=== PATIENT | male | born 1930 | race Caucasian/White ===

== ENCOUNTER 2017-07-28 11:53 | Inpatient (IN) | payer MEDICARE, OTHER ==
[2017-07-28 12:54] LABS: ADD MAN DIFF? NO
[2017-07-28 12:57] LABS: ABNORMAL IP MESSAGE 1; BASOPHILS % 0.3 % (0.0-2.0); EOSINOPHILS # 0.1 10^3/ul (0.0-0.5); HEMATOCRIT 36.1 % (42.0-52.0); HEMOGLOBIN 11.8 g/dl (14.0-18.0); LYMPHOCYTES # 0.6 10^3/ul (0.8-2.9); LYMPHOCYTES % 8.6 % (15.0-51.0); MEAN CORPUSCULAR HEMOGLOBIN 29.9 pg (29.0-33.0); MEAN CORPUSCULAR HGB CONC 32.7 g/dl (32.0-37.0); MEAN CORPUSCULAR VOLUME 91.6 fl (82.0-101.0); MEAN PLATELET VOLUME 9.2 fl (7.4-10.4); MONOCYTE # 0.7 10^3/ul (0.3-0.9); MONOCYTES % 9.6 % (0.0-11.0); NEUTROPHIL # 5.4 10^3/ul (1.6-7.5); NEUTROPHILS % 80.1 % (39.0-77.0); PLATELET COUNT 239 10^3/UL (140-415); POSITIVE DIFF @See below; RED BLOOD COUNT 3.94 10^6/ul (4.70-6.10); RED CELL DISTRIBUTION WIDTH 13.9 % (11.5-14.5)
[2017-07-28 12:57] LABS: WHITE BLOOD COUNT 6.8 10^3/ul (4.8-10.8)
[2017-07-28] MEDS: DILTIAZEM 25 MG INJ IV (13:00)
[2017-07-28] MEDS: SODIUM CHLORIDE 0.9% 1L BAG IV* (13:00)
[2017-07-28] MEDS: CEFTRIAXONE 1 GM/50 ML (PMX) 50 ML IVPB (13:07)
[2017-07-28 13:19] LABS: ADD UMIC YES; UR ASCORBIC ACID NEGATIVE (NEGATIVE); UR BACTERIA FEW /HPF (NONE SEEN); UR BILIRUBIN (Dip) NEGATIVE (NEGATIVE); UR BLOOD (Dip) 1+ mg/dL (NEGATIVE); UR CLARITY CLEAR (CLEAR); UR COLOR YELLOW (YELLOW); UR GLUCOSE (Dip) 1+ mg/dL (NEGATIVE); UR KETONES (Dip) NEGATIVE (NEGATIVE); UR LEUKOCYTE ESTERASE (Dip) NEGATIVE Leu/ul (NEGATIVE); UR MUCUS FEW /HPF (NONE SEEN); UR NITRITE (Dip) NEGATIVE (NEGATIVE); UR RBC 2 /HPF (0-5); UR SPECIFIC GRAVITY (Dip) 1.016 (1.003-1.030); UR TOTAL PROTEIN (Dip) NEGATIVE (NEGATIVE); UR UROBILINOGEN (Dip) 1+ mg/dL (NEGATIVE); UR WBC 5 /HPF (0-5)
[2017-07-28 13:23] LABS: INR 1.18; PROTIME 15.2 Sec (11.9-14.9); PT RATIO 1.2
[2017-07-28 13:24] LABS: PARTIAL THROMBOPLASTIN TIME 38.6 Sec (25.0-35.0)
[2017-07-28] MEDS: DILTIAZEM-D5W 125MG/125ML DRIP 125 ML IV ×2 (13:35→17:00)
[2017-07-28] MEDS: AZITHROMYCIN 500MG/NS (PMX) 250 ML IV (13:58)
[2017-07-28 13:59] LABS: LACTIC ACID 1.9 mmol/L (0.5-2.0)
[2017-07-28 14:00] LABS: ALANINE AMINOTRANSFERASE 37 IU/L (13-69); ALBUMIN 3.2 g/dl (3.3-4.9); ALKALINE PHOSPHATASE 302 IU/L (42-121); ANION GAP 15 (8-16); ASPARTATE AMINO TRANSFERASE 28 IU/L (15-46); BILIRUBIN,INDIRECT 0.6 mg/dl (0-1.1); BILIRUBIN,TOTAL 0.6 mg/dl (0.2-1.3); BLOOD UREA NITROGEN 25 mg/dl (7-20); CALCIUM 8.8 mg/dl (8.4-10.2); CARBON DIOXIDE 26 mmol/L (21-31); CHLORIDE 103 mmol/L (97-110); CREATININE 0.85 mg/dl (0.61-1.24); GLUCOSE 266 mg/dl (70-220); SODIUM 139 mmol/L (135-144); TOTAL PROTEIN 6.4 g/dl (6.1-8.1)
[2017-07-28 14:12] LABS: B-TYPE NATRIURETIC PEPTIDE 2980 PG/ML (0-450)
[2017-07-28 14:16] LABS: FREE THYROXINE INDEX (Calc) 3.51 ug/ml (0.65-3.89); T3 UPTAKE 43.3 % (23.5-40.5); T4 (THYROXINE) 8.1 ug/dl (5.5-11.0)
[2017-07-28 14:35] LABS: TROPONIN-I < 0.012 ng/ml (0.00-0.12)
[2017-07-28] MEDS: IOHEXOL 100 ML (14:58)
[2017-07-28] MEDS: SOD CHLORIDE 0.9% 100 ML (14:58)
[2017-07-28 15:35] LABS: LACTIC ACID 1.5 mmol/L (0.5-2.0)
[2017-07-28] MEDS ORDERED: ACETAMINOPHEN 325 MG TAB PO (16:00)
[2017-07-28] MEDS ORDERED: ONDANSETRON 4 MG INJ IV ×2 (16:00→16:30)
[2017-07-28] MEDS ORDERED: NACL 0.9% 3 ML SYG IV (16:30)
[2017-07-28 16:55] LABS: HEMOGLOBIN A1C 6.4 % (0-5.9)
[2017-07-28 17:15] LABS: FREE T4 (FREE THYROXINE) 2.27 ng/dl (0.85-1.93)
[2017-07-28 17:28] LABS: CARCINOEMBRYONIC ANTIGEN 2.4 ng/ml (0.0-5.0)
[2017-07-28] MEDS ORDERED: GLUCOSE GEL 15 GRAM TUBE BUCCAL (17:30)
[2017-07-28] MEDS ORDERED: GLUCOSE GEL 15 GRAM TUBE PO ×2 (17:30)
[2017-07-28] MEDS ORDERED: GLUCAGON 1 MG INJ IM (17:30)
[2017-07-28] MEDS ORDERED: DEXTROSE 50% 50 ML SYRINGE IV ×2 (17:30)
[2017-07-28] MEDS: INSULIN ASPART [NOVOLOG] 3 ML PEN SC ×3 (18:00→20:46)
[2017-07-28] MEDS: FUROSEMIDE 40 MG INJ IV (18:05)
[2017-07-28 19:30] LABS: CREATINE KINASE 101 IU/L (23-200)
[2017-07-28 19:31] LABS: LACTIC ACID 1.8 mmol/L (0.5-2.0)
[2017-07-28 19:44] LABS: CK-MB 2.05 ng/ml (0.0-2.4); TROPONIN-I < 0.012 ng/ml (0.00-0.12)
[2017-07-28] MEDS: LEVALBUTEROL (NEB) 0.63 MG/3 ML AMP HHN (19:44)
[2017-07-28] MEDS: DOCUSATE SODIUM 100 MG CAP PO (20:43)
[2017-07-28] MEDS: HYDROCODONE/APAP (5/325) TAB PO (20:43)
[2017-07-28] MEDS: TAMSULOSIN (SR) 0.4 MG CAP PO (20:43)
[2017-07-28] MEDS: INSULIN GLARGINE [LANtus] 3 ML PEN SC (20:45)
[2017-07-29] MEDS: LEVALBUTEROL (NEB) 0.63 MG/3 ML AMP HHN ×4 (01:13→19:49)
[2017-07-29 01:27] LABS: CREATINE KINASE 94 IU/L (23-200)
[2017-07-29 01:41] LABS: CK-MB 1.87 ng/ml (0.0-2.4); TROPONIN-I < 0.012 ng/ml (0.00-0.12)
[2017-07-29] MEDS: ACCU-CHEK XX ×2 (02:00→21:44)
[2017-07-29] MEDS: FUROSEMIDE 40 MG INJ IV ×2 (05:46→18:43)
[2017-07-29 06:52] LABS: ADD MAN DIFF? NO
[2017-07-29 07:15] LABS: BASOPHILS % 0.3 % (0.0-2.0); EOSINOPHILS # 0.1 10^3/ul (0.0-0.5); EOSINOPHILS % 1.4 % (0.0-7.0); HEMATOCRIT 34.6 % (42.0-52.0); LYMPHOCYTES # 0.6 10^3/ul (0.8-2.9); LYMPHOCYTES % 9.4 % (15.0-51.0); MEAN CORPUSCULAR HEMOGLOBIN 29.2 pg (29.0-33.0); MEAN CORPUSCULAR HGB CONC 31.8 g/dl (32.0-37.0); MEAN CORPUSCULAR VOLUME 91.8 fl (82.0-101.0); MEAN PLATELET VOLUME 9.2 fl (7.4-10.4); MONOCYTE # 0.7 10^3/ul (0.3-0.9); MONOCYTES % 11.5 % (0.0-11.0); NEUTROPHIL # 4.9 10^3/ul (1.6-7.5); NEUTROPHILS % 76.9 % (39.0-77.0); PLATELET COUNT 255 10^3/UL (140-415); RED BLOOD COUNT 3.77 10^6/ul (4.70-6.10); RED CELL DISTRIBUTION WIDTH 14.1 % (11.5-14.5)
[2017-07-29 07:15] LABS: WHITE BLOOD COUNT 6.4 10^3/ul (4.8-10.8)
[2017-07-29 07:38] LABS: ALANINE AMINOTRANSFERASE 41 IU/L (13-69); ALBUMIN 3.3 g/dl (3.3-4.9); ALKALINE PHOSPHATASE 284 IU/L (42-121); ANION GAP 15 (8-16); ASPARTATE AMINO TRANSFERASE 30 IU/L (15-46); BILIRUBIN,INDIRECT 0.4 mg/dl (0-1.1); BILIRUBIN,TOTAL 0.4 mg/dl (0.2-1.3); BLOOD UREA NITROGEN 20 mg/dl (7-20); CALCIUM 8.3 mg/dl (8.4-10.2); CARBON DIOXIDE 29 mmol/L (21-31); CHLORIDE 104 mmol/L (97-110); CREATININE 0.86 mg/dl (0.61-1.24); GLUCOSE 117 mg/dl (70-220); SODIUM 144 mmol/L (135-144); TOTAL PROTEIN 6.3 g/dl (6.1-8.1)
[2017-07-29 07:40] LABS: PHOSPHORUS 4.6 mg/dl (2.5-4.9)
[2017-07-29 07:40] LABS: CHOL/HDL RATIO 3.4 RATIO; CHOLESTEROL 108 mg/dl (100-200); HDL CHOLESTEROL 31 mg/dl (31-75); LDL CHOLESTEROL,CALCULATED 65 mg/dl; MAGNESIUM 1.8 mg/dl (1.7-2.5); TRIGLYCERIDES 61 mg/dl (0-149)
[2017-07-29] MEDS: INSULIN ASPART [NOVOLOG] 3 ML PEN SC ×7 (07:55→21:00)
[2017-07-29] MEDS: DOCUSATE SODIUM 100 MG CAP PO ×2 (08:07→21:26)
[2017-07-29] MEDS: METOPROLOL (XL) 25 MG TAB PO (08:09)
[2017-07-29] MEDS: ENALAPRIL 10 MG TAB PO (08:10)
[2017-07-29] MEDS: ENOXAPARIN 40 MG/0.4 ML SYG SC (08:13)
[2017-07-29] MEDS: CHOLECALCIFEROL 1,000 UNIT TAB PO (08:20)
[2017-07-29 08:59] LABS: AADO2 Arterial 104.7 mmHg (7.0-24.0); Allen Test ACCEPTAB; Arterial Base Excess 0.6 mmol/L (-3.0-3); Arterial Blood Gas Oxygen Sat 97.1 mmHG (95.0-100.0); Arterial COHb 0.8 % (0.0-3.0); Arterial HCO3 23.6 mmol/L (22.0-26.0); Arterial MetHb 0.3 % (0.0-1.5); Arterial Total Hemglobin 12.3 g/dl (12.0-18.0); Arterial pCO2 32.6 mmhg (35-45); MODE NASAL CANNULA; Site Right Radial
[2017-07-29] MEDS: DIGOXIN 0.25 MG TAB PO (12:18)
[2017-07-29] MEDS: CEFTRIAXONE 1 GM/50 ML (PMX) 50 ML IVPB (12:19)
[2017-07-29] MEDS: AZITHROMYCIN 500MG/NS (PMX) 250 ML IVPB (13:21)
[2017-07-29] MEDS: HYDROCODONE/APAP (5/325) TAB PO (16:24)
[2017-07-29] MEDS: LIDOCAINE 1% (MPF) 5 ML VIAL (18:27)
[2017-07-29] MEDS: BISACODYL (EC) 5 MG TAB PO (18:44)
[2017-07-29 19:11] LABS: FLD MN% 63.7 %; FLD PMN% 36.3 %; FLD RBC 4000 /uL; FLD WBC 794 /cmm
[2017-07-29 19:30] LABS: FLUID GLUCOSE 96 mg/dl; FLUID LD 1191 U/L; FLUID TYPE THORACENTESIS FLUID
[2017-07-29 19:33] LABS: FLD CLARITY CLOUDY; FLD COLOR ORANGE
[2017-07-29 19:33] LABS: FLD TYPE PLEURAL
[2017-07-29] MEDS: TAMSULOSIN (SR) 0.4 MG CAP PO (21:26)
[2017-07-29] MEDS: ACETAMINOPHEN 325 MG TAB PO (21:27)
[2017-07-29] MEDS: INSULIN GLARGINE [LANtus] 3 ML PEN SC (21:42)
[2017-07-30] MEDS: HYDROCODONE/APAP (5/325) TAB PO ×2 (01:31→08:28)
[2017-07-30] MEDS: LEVALBUTEROL (NEB) 0.63 MG/3 ML AMP HHN ×4 (01:58→19:12)
[2017-07-30] MEDS: BISACODYL (EC) 5 MG TAB PO ×2 (01:58→09:34)
[2017-07-30] MEDS: FUROSEMIDE 40 MG INJ IV ×2 (06:39→17:28)
[2017-07-30 07:12] LABS: ADD MAN DIFF? NO; BASOPHILS % 0.3 % (0.0-2.0); EOSINOPHILS # 0.1 10^3/ul (0.0-0.5); EOSINOPHILS % 1.5 % (0.0-7.0); HEMATOCRIT 35.6 % (42.0-52.0); HEMOGLOBIN 11.6 g/dl (14.0-18.0); LYMPHOCYTES # 0.8 10^3/ul (0.8-2.9); LYMPHOCYTES % 11.2 % (15.0-51.0); MEAN CORPUSCULAR HEMOGLOBIN 29.4 pg (29.0-33.0); MEAN CORPUSCULAR HGB CONC 32.6 g/dl (32.0-37.0); MEAN CORPUSCULAR VOLUME 90.4 fl (82.0-101.0); MEAN PLATELET VOLUME 9.5 fl (7.4-10.4); MONOCYTE # 0.9 10^3/ul (0.3-0.9); MONOCYTES % 11.6 % (0.0-11.0); NEUTROPHIL # 5.6 10^3/ul (1.6-7.5); PLATELET COUNT 258 10^3/UL (140-415); RED BLOOD COUNT 3.94 10^6/ul (4.70-6.10); RED CELL DISTRIBUTION WIDTH 14.1 % (11.5-14.5)
[2017-07-30 07:12] LABS: WHITE BLOOD COUNT 7.5 10^3/ul (4.8-10.8)
[2017-07-30 07:35] LABS: ANION GAP 17 (8-16); BLOOD UREA NITROGEN 25 mg/dl (7-20); CALCIUM 8.6 mg/dl (8.4-10.2); CARBON DIOXIDE 30 mmol/L (21-31); CHLORIDE 100 mmol/L (97-110); CREATININE 0.89 mg/dl (0.61-1.24); GLUCOSE 137 mg/dl (70-220); POTASSIUM 4.1 mmol/L (3.5-5.1); SODIUM 143 mmol/L (135-144)
[2017-07-30 07:40] LABS: PHOSPHORUS 4.8 mg/dl (2.5-4.9)
[2017-07-30 07:40] LABS: MAGNESIUM 1.6 mg/dl (1.7-2.5)
[2017-07-30] MEDS: INSULIN ASPART [NOVOLOG] 3 ML PEN SC ×7 (07:55→21:00)
[2017-07-30] MEDS: ENALAPRIL 10 MG TAB PO (08:17)
[2017-07-30] MEDS: CHOLECALCIFEROL 1,000 UNIT TAB PO (08:17)
[2017-07-30] MEDS: METOPROLOL (XL) 25 MG TAB PO (08:17)
[2017-07-30] MEDS: DOCUSATE SODIUM 100 MG CAP PO ×2 (08:18→21:13)
[2017-07-30] MEDS: ENOXAPARIN 40 MG/0.4 ML SYG SC (08:27)
[2017-07-30] MEDS: MAGNESIUM SULFATE 2 GM/50 ML 50 ML IVPB (09:34)
[2017-07-30] MEDS: POLYETHYLENE GLYCOL 17 GM PACKET PO ×2 (09:34→21:13)
[2017-07-30] MEDS: DIGOXIN 0.25 MG TAB PO (12:35)
[2017-07-30] MEDS ORDERED: NA PHOSPHATE/BIPHOS 133 ML ENEMA PR (15:30)
[2017-07-30] MEDS: TAMSULOSIN (SR) 0.4 MG CAP PO (21:13)
[2017-07-30] MEDS: METOPROLOL 25 MG TAB PO (21:14)
[2017-07-30] MEDS: INSULIN GLARGINE [LANtus] 3 ML PEN SC (21:23)
[2017-07-30] MEDS: ACCU-CHEK XX (21:50)
[2017-07-31] MEDS: LEVALBUTEROL (NEB) 0.63 MG/3 ML AMP HHN ×4 (02:00→21:24)
[2017-07-31 06:38] LABS: ADD MAN DIFF? NO
[2017-07-31 06:44] LABS: WHITE BLOOD COUNT 8.6 10^3/ul (4.8-10.8)
[2017-07-31 06:44] LABS: BASOPHILS % 0.4 % (0.0-2.0); EOSINOPHILS # 0.1 10^3/ul (0.0-0.5); EOSINOPHILS % 1.1 % (0.0-7.0); HEMATOCRIT 38.7 % (42.0-52.0); HEMOGLOBIN 12.3 g/dl (14.0-18.0); LYMPHOCYTES # 0.9 10^3/ul (0.8-2.9); LYMPHOCYTES % 10.6 % (15.0-51.0); MEAN CORPUSCULAR HEMOGLOBIN 29.1 pg (29.0-33.0); MEAN CORPUSCULAR HGB CONC 31.8 g/dl (32.0-37.0); MEAN CORPUSCULAR VOLUME 91.5 fl (82.0-101.0); MEAN PLATELET VOLUME 9.1 fl (7.4-10.4); MONOCYTE # 1.2 10^3/ul (0.3-0.9); MONOCYTES % 13.6 % (0.0-11.0); NEUTROPHIL # 6.3 10^3/ul (1.6-7.5); NEUTROPHILS % 73.8 % (39.0-77.0); PLATELET COUNT 269 10^3/UL (140-415); RED BLOOD COUNT 4.23 10^6/ul (4.70-6.10); RED CELL DISTRIBUTION WIDTH 13.8 % (11.5-14.5)
[2017-07-31] MEDS: FUROSEMIDE 40 MG INJ IV (07:01)
[2017-07-31 07:18] LABS: ANION GAP 15 (8-16); BLOOD UREA NITROGEN 31 mg/dl (7-20); CALCIUM 8.4 mg/dl (8.4-10.2); CARBON DIOXIDE 31 mmol/L (21-31); CHLORIDE 97 mmol/L (97-110); CREATININE 1.02 mg/dl (0.61-1.24); GLUCOSE 112 mg/dl (70-220); POTASSIUM 3.7 mmol/L (3.5-5.1); SODIUM 139 mmol/L (135-144)
[2017-07-31 07:45] LABS: PHOSPHORUS 4.5 mg/dl (2.5-4.9)
[2017-07-31 07:45] LABS: MAGNESIUM 1.6 mg/dl (1.7-2.5)
[2017-07-31] MEDS: INSULIN ASPART [NOVOLOG] 3 ML PEN SC ×7 (07:55→20:24)
[2017-07-31] MEDS: DOCUSATE SODIUM 100 MG CAP PO ×2 (08:13→20:23)
[2017-07-31] MEDS: POLYETHYLENE GLYCOL 17 GM PACKET PO ×2 (08:15→20:24)
[2017-07-31] MEDS: METOPROLOL 25 MG TAB PO ×2 (08:15→20:23)
[2017-07-31] MEDS: CHOLECALCIFEROL 1,000 UNIT TAB PO (08:16)
[2017-07-31] MEDS: ENALAPRIL 10 MG TAB PO (08:17)
[2017-07-31] MEDS: ENOXAPARIN 40 MG/0.4 ML SYG SC (08:24)
[2017-07-31] MEDS: HYDROCODONE/APAP (5/325) TAB PO (12:15)
[2017-07-31] MEDS: DIGOXIN 0.25 MG TAB PO (13:00)
[2017-07-31] MEDS: ALBUMIN HUMAN 5% 250 ML IV (14:30)
[2017-07-31] MEDS: SOD CHLORIDE 0.9% 500 ML IV (14:30)
[2017-07-31] MEDS: POTASSIUM CHLORIDE (SR) 20 MEQ TAB PO (15:38)
[2017-07-31] MEDS: MAGNESIUM SULFATE 2 GM/50 ML 50 ML IVPB (16:40)
[2017-07-31] MEDS: TAMSULOSIN (SR) 0.4 MG CAP PO (20:23)
[2017-07-31] MEDS: INSULIN GLARGINE [LANtus] 3 ML PEN SC (20:26)
[2017-08-01] MEDS: BISACODYL (EC) 5 MG TAB PO (01:49)
[2017-08-01] MEDS: HYDROCODONE/APAP (5/325) TAB PO ×3 (01:49→16:53)
[2017-08-01] MEDS: ACCU-CHEK XX (02:19)
[2017-08-01] MEDS: LEVALBUTEROL (NEB) 0.63 MG/3 ML AMP HHN ×4 (03:32→20:28)
[2017-08-01 07:17] LABS: ADD MAN DIFF? NO
[2017-08-01 07:23] LABS: BASOPHILS % 0.4 % (0.0-2.0); EOSINOPHILS # 0.1 10^3/ul (0.0-0.5); EOSINOPHILS % 1.6 % (0.0-7.0); HEMATOCRIT 36.9 % (42.0-52.0); HEMOGLOBIN 11.8 g/dl (14.0-18.0); LYMPHOCYTES % 13.4 % (15.0-51.0); MEAN CORPUSCULAR HEMOGLOBIN 29.2 pg (29.0-33.0); MEAN CORPUSCULAR VOLUME 91.3 fl (82.0-101.0); MEAN PLATELET VOLUME 9.1 fl (7.4-10.4); MONOCYTES % 13.7 % (0.0-11.0); NEUTROPHIL # 5.1 10^3/ul (1.6-7.5); NEUTROPHILS % 70.5 % (39.0-77.0); PLATELET COUNT 263 10^3/UL (140-415); RED BLOOD COUNT 4.04 10^6/ul (4.70-6.10); RED CELL DISTRIBUTION WIDTH 13.6 % (11.5-14.5)
[2017-08-01 07:23] LABS: WHITE BLOOD COUNT 7.3 10^3/ul (4.8-10.8)
[2017-08-01 07:42] LABS: ANION GAP 13 (8-16); BLOOD UREA NITROGEN 37 mg/dl (7-20); CALCIUM 8.1 mg/dl (8.4-10.2); CARBON DIOXIDE 32 mmol/L (21-31); CHLORIDE 96 mmol/L (97-110); CREATININE 0.99 mg/dl (0.61-1.24); GLUCOSE 118 mg/dl (70-220); POTASSIUM 4.6 mmol/L (3.5-5.1); SODIUM 136 mmol/L (135-144)
[2017-08-01 07:50] LABS: MAGNESIUM 2.3 mg/dl (1.7-2.5)
[2017-08-01] MEDS: INSULIN ASPART [NOVOLOG] 3 ML PEN SC ×7 (07:55→20:19)
[2017-08-01] MEDS: CHOLECALCIFEROL 1,000 UNIT TAB PO (08:23)
[2017-08-01] MEDS: DOCUSATE SODIUM 100 MG CAP PO ×2 (08:24→20:12)
[2017-08-01] MEDS: FUROSEMIDE 40 MG INJ IV (08:24)
[2017-08-01] MEDS: LISINOPRIL 5 MG TAB PO (08:24)
[2017-08-01] MEDS: POLYETHYLENE GLYCOL 17 GM PACKET PO ×2 (08:25→20:12)
[2017-08-01] MEDS: METOPROLOL 25 MG TAB PO ×2 (08:25→20:25)
[2017-08-01] MEDS: ENOXAPARIN 40 MG/0.4 ML SYG SC (08:27)
[2017-08-01] MEDS ORDERED: BISACODYL 10 MG SUPP PR (13:00)
[2017-08-01] MEDS: DIGOXIN 0.25 MG TAB PO (13:44)
[2017-08-01] MEDS: TAMSULOSIN (SR) 0.4 MG CAP PO (20:12)
[2017-08-01] MEDS: INSULIN GLARGINE [LANtus] 3 ML PEN SC (20:15)
[2017-08-01] MEDS: ZOLPIDEM 5 MG TAB PO (23:54)
[2017-08-02] MEDS: LEVALBUTEROL (NEB) 0.63 MG/3 ML AMP HHN ×4 (02:03→19:31)
[2017-08-02] MEDS: ACCU-CHEK XX (02:07)
[2017-08-02] MEDS: INSULIN ASPART [NOVOLOG] 3 ML PEN SC ×7 (07:55→20:26)
[2017-08-02] MEDS: FUROSEMIDE 40 MG INJ IV (08:10)
[2017-08-02] MEDS: METOPROLOL 25 MG TAB PO ×2 (08:11→20:28)
[2017-08-02] MEDS: LISINOPRIL 5 MG TAB PO ×2 (08:11→20:27)
[2017-08-02 08:12] LABS: ADD MAN DIFF? NO
[2017-08-02 08:14] LABS: BASOPHILS % 0.3 % (0.0-2.0); EOSINOPHILS # 0.1 10^3/ul (0.0-0.5); EOSINOPHILS % 1.3 % (0.0-7.0); HEMATOCRIT 37.2 % (42.0-52.0); HEMOGLOBIN 11.7 g/dl (14.0-18.0); LYMPHOCYTES # 0.7 10^3/ul (0.8-2.9); LYMPHOCYTES % 10.7 % (15.0-51.0); MEAN CORPUSCULAR HEMOGLOBIN 28.7 pg (29.0-33.0); MEAN CORPUSCULAR HGB CONC 31.5 g/dl (32.0-37.0); MEAN CORPUSCULAR VOLUME 91.4 fl (82.0-101.0); MEAN PLATELET VOLUME 9.1 fl (7.4-10.4); MONOCYTE # 0.8 10^3/ul (0.3-0.9); MONOCYTES % 12.2 % (0.0-11.0); NEUTROPHIL # 5.1 10^3/ul (1.6-7.5); NEUTROPHILS % 74.9 % (39.0-77.0); PLATELET COUNT 267 10^3/UL (140-415); RED BLOOD COUNT 4.07 10^6/ul (4.70-6.10); RED CELL DISTRIBUTION WIDTH 13.4 % (11.5-14.5)
[2017-08-02 08:14] LABS: WHITE BLOOD COUNT 6.8 10^3/ul (4.8-10.8)
[2017-08-02 08:47] LABS: ANION GAP 15 (8-16); BLOOD UREA NITROGEN 33 mg/dl (7-20); CALCIUM 8.5 mg/dl (8.4-10.2); CARBON DIOXIDE 33 mmol/L (21-31); CHLORIDE 95 mmol/L (97-110); CREATININE 0.89 mg/dl (0.61-1.24); GLUCOSE 140 mg/dl (70-220); POTASSIUM 4.5 mmol/L (3.5-5.1); SODIUM 138 mmol/L (135-144)
[2017-08-02] MEDS: POLYETHYLENE GLYCOL 17 GM PACKET PO ×2 (08:54→20:28)
[2017-08-02] MEDS: CHOLECALCIFEROL 1,000 UNIT TAB PO (08:54)
[2017-08-02] MEDS: DOCUSATE SODIUM 100 MG CAP PO ×2 (08:54→20:27)
[2017-08-02] MEDS: ENOXAPARIN 40 MG/0.4 ML SYG SC (08:56)
[2017-08-02] MEDS: DIGOXIN 0.25 MG TAB PO (14:24)
[2017-08-02] MEDS: HYDROCODONE/APAP (5/325) TAB PO (18:34)
[2017-08-02] MEDS: TAMSULOSIN (SR) 0.4 MG CAP PO (20:27)
[2017-08-02] MEDS: INSULIN GLARGINE [LANtus] 3 ML PEN SC (20:36)
[2017-08-03] MEDS: ACCU-CHEK XX (02:00)
[2017-08-03] MEDS: LEVALBUTEROL (NEB) 0.63 MG/3 ML AMP HHN ×4 (02:03→19:42)
[2017-08-03] MEDS: INSULIN ASPART [NOVOLOG] 3 ML PEN SC ×7 (07:55→20:57)
[2017-08-03 09:00] LABS: ADD MAN DIFF? NO
[2017-08-03] MEDS: ENOXAPARIN 40 MG/0.4 ML SYG SC (09:00)
[2017-08-03] MEDS: LISINOPRIL 5 MG TAB PO ×2 (09:00→21:30)
[2017-08-03] MEDS: METOPROLOL 25 MG TAB PO ×2 (09:00→21:31)
[2017-08-03 09:14] LABS: BASOPHILS % 0.4 % (0.0-2.0); EOSINOPHILS # 0.1 10^3/ul (0.0-0.5); EOSINOPHILS % 1.6 % (0.0-7.0); HEMATOCRIT 38.2 % (42.0-52.0); HEMOGLOBIN 12.1 g/dl (14.0-18.0); LYMPHOCYTES # 0.8 10^3/ul (0.8-2.9); LYMPHOCYTES % 12.1 % (15.0-51.0); MEAN CORPUSCULAR HEMOGLOBIN 29.2 pg (29.0-33.0); MEAN CORPUSCULAR HGB CONC 31.7 g/dl (32.0-37.0); MEAN PLATELET VOLUME 9.5 fl (7.4-10.4); MONOCYTE # 0.9 10^3/ul (0.3-0.9); MONOCYTES % 12.7 % (0.0-11.0); NEUTROPHILS % 72.6 % (39.0-77.0); PLATELET COUNT 285 10^3/UL (140-415); RED BLOOD COUNT 4.15 10^6/ul (4.70-6.10); RED CELL DISTRIBUTION WIDTH 13.4 % (11.5-14.5)
[2017-08-03 09:14] LABS: WHITE BLOOD COUNT 6.9 10^3/ul (4.8-10.8)
[2017-08-03 10:06] LABS: ANION GAP 13 (8-16); BLOOD UREA NITROGEN 34 mg/dl (7-20); CALCIUM 8.4 mg/dl (8.4-10.2); CARBON DIOXIDE 34 mmol/L (21-31); CHLORIDE 95 mmol/L (97-110); CREATININE 0.97 mg/dl (0.61-1.24); GLUCOSE 141 mg/dl (70-220); POTASSIUM 4.4 mmol/L (3.5-5.1); SODIUM 138 mmol/L (135-144)
[2017-08-03] MEDS: FUROSEMIDE 40 MG INJ IV (10:15)
[2017-08-03] MEDS: DEXTROSE 5%-0.45% NACL 1,000 ML IV (11:00)
[2017-08-03] MEDS ORDERED: morphine 2 MG INJ IV (12:00)
[2017-08-03] MEDS: PROPOFOL 20 ML (12:34)
[2017-08-03] MEDS: MIDAZOLAM 1 MG/ML 2 ML INJ (14:00)
[2017-08-03] MEDS: FENTAnyl 50 MCG/ML VIAL (14:00)
[2017-08-03] MEDS: LIDOCAINE 1% (MDV) 20 ML INJ (14:36)
[2017-08-03] MEDS: SOD CHLORIDE 0.9% 500 ML (14:36)
[2017-08-03] MEDS ORDERED: ONDANSETRON 4 MG INJ IV (15:30)
[2017-08-03] MEDS ORDERED: FENTAnyl 50 MCG/ML VIAL IV (15:30)
[2017-08-03] MEDS: DOCUSATE SODIUM 100 MG CAP PO ×2 (16:38→21:30)
[2017-08-03] MEDS: POLYETHYLENE GLYCOL 17 GM PACKET PO ×2 (16:38→21:29)
[2017-08-03] MEDS: CHOLECALCIFEROL 1,000 UNIT TAB PO (16:38)
[2017-08-03] MEDS: DIGOXIN 0.25 MG TAB PO (16:44)
[2017-08-03] MEDS: LEVALBUTEROL (NEB) 1.25 MG/0.5 ML AMP HHN (17:29)
[2017-08-03] MEDS: INSULIN GLARGINE [LANtus] 3 ML PEN SC (20:56)
[2017-08-03] MEDS: TAMSULOSIN (SR) 0.4 MG CAP PO (21:30)
[2017-08-04] MEDS: LEVALBUTEROL (NEB) 0.63 MG/3 ML AMP HHN ×4 (01:48→19:23)
[2017-08-04] MEDS: ACCU-CHEK XX (02:00)
[2017-08-04] MEDS: HYDROCODONE/APAP (5/325) TAB PO ×3 (04:05→22:17)
[2017-08-04 07:44] LABS: ADD MAN DIFF? NO
[2017-08-04 07:48] LABS: BASOPHILS % 0.4 % (0.0-2.0); EOSINOPHILS # 0.1 10^3/ul (0.0-0.5); EOSINOPHILS % 1.6 % (0.0-7.0); HEMATOCRIT 40.6 % (42.0-52.0); HEMOGLOBIN 12.8 g/dl (14.0-18.0); LYMPHOCYTES # 1.2 10^3/ul (0.8-2.9); LYMPHOCYTES % 15.1 % (15.0-51.0); MEAN CORPUSCULAR HEMOGLOBIN 29.3 pg (29.0-33.0); MEAN CORPUSCULAR HGB CONC 31.5 g/dl (32.0-37.0); MEAN CORPUSCULAR VOLUME 92.9 fl (82.0-101.0); MEAN PLATELET VOLUME 9.7 fl (7.4-10.4); MONOCYTE # 1.1 10^3/ul (0.3-0.9); MONOCYTES % 13.7 % (0.0-11.0); NEUTROPHIL # 5.3 10^3/ul (1.6-7.5); NEUTROPHILS % 68.7 % (39.0-77.0); PLATELET COUNT 297 10^3/UL (140-415); RED BLOOD COUNT 4.37 10^6/ul (4.70-6.10); RED CELL DISTRIBUTION WIDTH 13.4 % (11.5-14.5)
[2017-08-04 07:48] LABS: WHITE BLOOD COUNT 7.7 10^3/ul (4.8-10.8)
[2017-08-04 08:12] LABS: ANION GAP 14 (8-16); BLOOD UREA NITROGEN 36 mg/dl (7-20); CALCIUM 8.8 mg/dl (8.4-10.2); CARBON DIOXIDE 35 mmol/L (21-31); CHLORIDE 95 mmol/L (97-110); CREATININE 1.02 mg/dl (0.61-1.24); GLUCOSE 162 mg/dl (70-220); POTASSIUM 4.5 mmol/L (3.5-5.1); SODIUM 139 mmol/L (135-144)
[2017-08-04] MEDS: POLYETHYLENE GLYCOL 17 GM PACKET PO ×2 (08:50→20:30)
[2017-08-04] MEDS: METOPROLOL 25 MG TAB PO ×2 (08:50→20:31)
[2017-08-04] MEDS: CHOLECALCIFEROL 1,000 UNIT TAB PO (08:50)
[2017-08-04] MEDS: FUROSEMIDE 40 MG INJ IV (08:50)
[2017-08-04] MEDS: DOCUSATE SODIUM 100 MG CAP PO ×2 (08:50→20:30)
[2017-08-04] MEDS: LISINOPRIL 5 MG TAB PO ×2 (08:50→20:31)
[2017-08-04] MEDS: INSULIN ASPART [NOVOLOG] 3 ML PEN SC ×7 (08:58→20:31)
[2017-08-04] MEDS: ENOXAPARIN 40 MG/0.4 ML SYG SC (08:58)
[2017-08-04] MEDS: DIGOXIN 0.25 MG TAB PO (12:11)
[2017-08-04] MEDS: TAMSULOSIN (SR) 0.4 MG CAP PO (20:30)
[2017-08-04] MEDS: INSULIN GLARGINE [LANtus] 3 ML PEN SC (20:35)
[2017-08-05] MEDS: LEVALBUTEROL (NEB) 0.63 MG/3 ML AMP HHN ×4 (01:26→20:04)
[2017-08-05] MEDS: ACCU-CHEK XX (01:29)
[2017-08-05] MEDS: morphine 2 MG INJ IV (01:33)
[2017-08-05] MEDS: INSULIN ASPART [NOVOLOG] 3 ML PEN SC ×7 (07:46→20:21)
[2017-08-05] MEDS: CHOLECALCIFEROL 1,000 UNIT TAB PO (08:37)
[2017-08-05] MEDS: POLYETHYLENE GLYCOL 17 GM PACKET PO ×2 (08:37→20:18)
[2017-08-05] MEDS: DOCUSATE SODIUM 100 MG CAP PO ×2 (08:37→20:18)
[2017-08-05] MEDS: FUROSEMIDE 40 MG INJ IV (08:38)
[2017-08-05] MEDS: HYDROCODONE/APAP (5/325) TAB PO ×2 (08:38→19:00)
[2017-08-05] MEDS: LISINOPRIL 5 MG TAB PO ×2 (08:38→20:19)
[2017-08-05] MEDS: METOPROLOL 25 MG TAB PO ×2 (08:38→20:19)
[2017-08-05 08:43] LABS: ADD MAN DIFF? NO
[2017-08-05] MEDS: ENOXAPARIN 40 MG/0.4 ML SYG SC (08:44)
[2017-08-05 08:53] LABS: WHITE BLOOD COUNT 7.2 10^3/ul (4.8-10.8)
[2017-08-05 08:53] LABS: BASOPHILS % 0.3 % (0.0-2.0); EOSINOPHILS # 0.1 10^3/ul (0.0-0.5); EOSINOPHILS % 1.8 % (0.0-7.0); HEMATOCRIT 38.9 % (42.0-52.0); HEMOGLOBIN 12.1 g/dl (14.0-18.0); LYMPHOCYTES # 0.7 10^3/ul (0.8-2.9); MEAN CORPUSCULAR HEMOGLOBIN 28.8 pg (29.0-33.0); MEAN CORPUSCULAR HGB CONC 31.1 g/dl (32.0-37.0); MEAN CORPUSCULAR VOLUME 92.6 fl (82.0-101.0); MEAN PLATELET VOLUME 9.6 fl (7.4-10.4); MONOCYTES % 13.4 % (0.0-11.0); NEUTROPHIL # 5.3 10^3/ul (1.6-7.5); NEUTROPHILS % 73.9 % (39.0-77.0); PLATELET COUNT 296 10^3/UL (140-415); RED CELL DISTRIBUTION WIDTH 13.7 % (11.5-14.5)
[2017-08-05 09:08] LABS: ANION GAP 13 (8-16); BLOOD UREA NITROGEN 41 mg/dl (7-20); CALCIUM 8.3 mg/dl (8.4-10.2); CARBON DIOXIDE 35 mmol/L (21-31); CHLORIDE 95 mmol/L (97-110); GLUCOSE 157 mg/dl (70-220); POTASSIUM 4.7 mmol/L (3.5-5.1); SODIUM 138 mmol/L (135-144)
[2017-08-05] MEDS: DIGOXIN 0.25 MG TAB PO (12:12)
[2017-08-05] MEDS: TAMSULOSIN (SR) 0.4 MG CAP PO (20:18)
[2017-08-05] MEDS: INSULIN GLARGINE [LANtus] 3 ML PEN SC (20:21)
[2017-08-06] MEDS: HYDROCODONE/APAP (5/325) TAB PO ×2 (00:41→08:19)
[2017-08-06] MEDS: LEVALBUTEROL (NEB) 0.63 MG/3 ML AMP HHN ×4 (02:00→19:13)
[2017-08-06] MEDS: ACCU-CHEK XX (02:35)
[2017-08-06] MEDS: INSULIN ASPART [NOVOLOG] 3 ML PEN SC ×7 (07:55→20:54)
[2017-08-06] MEDS: DOCUSATE SODIUM 100 MG CAP PO ×2 (08:19→20:47)
[2017-08-06] MEDS: POLYETHYLENE GLYCOL 17 GM PACKET PO ×2 (08:19→20:45)
[2017-08-06] MEDS: CHOLECALCIFEROL 1,000 UNIT TAB PO (08:19)
[2017-08-06] MEDS: LISINOPRIL 5 MG TAB PO ×2 (08:20→20:46)
[2017-08-06] MEDS: FUROSEMIDE 40 MG INJ IV (08:21)
[2017-08-06] MEDS: METOPROLOL 25 MG TAB PO ×2 (08:21→20:47)
[2017-08-06 08:26] LABS: ADD MAN DIFF? NO
[2017-08-06] MEDS: ENOXAPARIN 40 MG/0.4 ML SYG SC (08:26)
[2017-08-06 08:36] LABS: WHITE BLOOD COUNT 7.8 10^3/ul (4.8-10.8)
[2017-08-06 08:36] LABS: BASOPHILS % 0.4 % (0.0-2.0); EOSINOPHILS # 0.1 10^3/ul (0.0-0.5); EOSINOPHILS % 1.7 % (0.0-7.0); HEMATOCRIT 39.2 % (42.0-52.0); HEMOGLOBIN 12.3 g/dl (14.0-18.0); LYMPHOCYTES # 1.1 10^3/ul (0.8-2.9); LYMPHOCYTES % 13.6 % (15.0-51.0); MEAN CORPUSCULAR HEMOGLOBIN 29.2 pg (29.0-33.0); MEAN CORPUSCULAR HGB CONC 31.4 g/dl (32.0-37.0); MEAN CORPUSCULAR VOLUME 93.1 fl (82.0-101.0); MEAN PLATELET VOLUME 9.5 fl (7.4-10.4); MONOCYTE # 1.1 10^3/ul (0.3-0.9); MONOCYTES % 13.5 % (0.0-11.0); NEUTROPHIL # 5.5 10^3/ul (1.6-7.5); NEUTROPHILS % 70.2 % (39.0-77.0); PLATELET COUNT 297 10^3/UL (140-415); RED BLOOD COUNT 4.21 10^6/ul (4.70-6.10); RED CELL DISTRIBUTION WIDTH 13.7 % (11.5-14.5)
[2017-08-06 09:00] LABS: ANION GAP 16 (8-16); BLOOD UREA NITROGEN 41 mg/dl (7-20); CALCIUM 8.6 mg/dl (8.4-10.2); CARBON DIOXIDE 31 mmol/L (21-31); CHLORIDE 96 mmol/L (97-110); CREATININE 1.11 mg/dl (0.61-1.24); GLUCOSE 128 mg/dl (70-220); POTASSIUM 4.6 mmol/L (3.5-5.1); SODIUM 138 mmol/L (135-144)
[2017-08-06] MEDS ORDERED: INFLUENZA VIRUS VACCINE 0.5 ML SYG IM* (09:00)
[2017-08-06] MEDS: DIGOXIN 0.25 MG TAB PO (12:09)
[2017-08-06] MEDS: LEVALBUTEROL (NEB) 1.25 MG/0.5 ML AMP HHN (16:04)
[2017-08-06] MEDS: TAMSULOSIN (SR) 0.4 MG CAP PO (20:46)
[2017-08-06] MEDS: INSULIN GLARGINE [LANtus] 3 ML PEN SC (20:53)
[2017-08-06] MEDS: morphine 2 MG INJ IV (23:38)
[2017-08-07] MEDS: LEVALBUTEROL (NEB) 0.63 MG/3 ML AMP HHN ×4 (02:00→19:26)
[2017-08-07] MEDS: ACCU-CHEK XX (02:00)
[2017-08-07] MEDS: INSULIN ASPART [NOVOLOG] 3 ML PEN SC ×7 (08:34→20:17)
[2017-08-07] MEDS: LISINOPRIL 5 MG TAB PO ×2 (08:36→20:13)
[2017-08-07] MEDS: POLYETHYLENE GLYCOL 17 GM PACKET PO ×2 (08:36→20:17)
[2017-08-07] MEDS: METOPROLOL 25 MG TAB PO ×2 (08:36→20:12)
[2017-08-07] MEDS: FUROSEMIDE 40 MG INJ IV (08:37)
[2017-08-07] MEDS: CHOLECALCIFEROL 1,000 UNIT TAB PO (08:37)
[2017-08-07] MEDS: DOCUSATE SODIUM 100 MG CAP PO ×2 (08:37→20:12)
[2017-08-07] MEDS: ENOXAPARIN 40 MG/0.4 ML SYG SC (08:52)
[2017-08-07] MEDS: DIGOXIN 0.25 MG TAB PO (12:10)
[2017-08-07] MEDS: morphine 2 MG INJ IV (20:03)
[2017-08-07] MEDS: TAMSULOSIN (SR) 0.4 MG CAP PO (20:12)
[2017-08-07] MEDS: INSULIN GLARGINE [LANtus] 3 ML PEN SC (20:17)
[2017-08-08] MEDS: ACCU-CHEK XX (02:00)
[2017-08-08] MEDS: LEVALBUTEROL (NEB) 0.63 MG/3 ML AMP HHN ×4 (02:33→19:23)
[2017-08-08 08:04] LABS: ADD MAN DIFF? NO
[2017-08-08] MEDS: DOCUSATE SODIUM 100 MG CAP PO ×2 (08:14→21:12)
[2017-08-08] MEDS: CHOLECALCIFEROL 1,000 UNIT TAB PO (08:14)
[2017-08-08] MEDS: POLYETHYLENE GLYCOL 17 GM PACKET PO ×2 (08:14→21:12)
[2017-08-08 08:15] LABS: WHITE BLOOD COUNT 8.9 10^3/ul (4.8-10.8)
[2017-08-08 08:15] LABS: BASOPHILS % 0.2 % (0.0-2.0); EOSINOPHILS # 0.1 10^3/ul (0.0-0.5); HEMOGLOBIN 12.1 g/dl (14.0-18.0); LYMPHOCYTES # 1.2 10^3/ul (0.8-2.9); LYMPHOCYTES % 13.4 % (15.0-51.0); MEAN CORPUSCULAR HEMOGLOBIN 29.1 pg (29.0-33.0); MEAN CORPUSCULAR HGB CONC 31.8 g/dl (32.0-37.0); MEAN CORPUSCULAR VOLUME 91.3 fl (82.0-101.0); MEAN PLATELET VOLUME 9.6 fl (7.4-10.4); MONOCYTE # 1.1 10^3/ul (0.3-0.9); NEUTROPHIL # 6.4 10^3/ul (1.6-7.5); NEUTROPHILS % 72.7 % (39.0-77.0); PLATELET COUNT 314 10^3/UL (140-415); RED BLOOD COUNT 4.16 10^6/ul (4.70-6.10); RED CELL DISTRIBUTION WIDTH 13.6 % (11.5-14.5)
[2017-08-08] MEDS: INSULIN ASPART [NOVOLOG] 3 ML PEN SC ×7 (08:24→21:18)
[2017-08-08] MEDS: METOPROLOL 25 MG TAB PO ×2 (08:25→21:15)
[2017-08-08] MEDS: LISINOPRIL 5 MG TAB PO (08:25)
[2017-08-08] MEDS: FUROSEMIDE 40 MG INJ IV (08:25)
[2017-08-08] MEDS: ENOXAPARIN 40 MG/0.4 ML SYG SC (08:28)
[2017-08-08 08:33] LABS: ANION GAP 15 (8-16); BLOOD UREA NITROGEN 40 mg/dl (7-20); CALCIUM 9.1 mg/dl (8.4-10.2); CARBON DIOXIDE 32 mmol/L (21-31); CHLORIDE 96 mmol/L (97-110); CREATININE 1.18 mg/dl (0.61-1.24); GLUCOSE 160 mg/dl (70-220); SODIUM 138 mmol/L (135-144)
[2017-08-08 08:35] LABS: MAGNESIUM 2.2 mg/dl (1.7-2.5)
[2017-08-08 08:35] LABS: PHOSPHORUS 4.7 mg/dl (2.5-4.9)
[2017-08-08] MEDS: DIGOXIN 0.25 MG TAB PO (12:14)
[2017-08-08 20:53] LABS: PROSTATE SPECIFIC ANTIGEN 35.8 ng/ml (0.0-4.0)
[2017-08-08] MEDS: TAMSULOSIN (SR) 0.4 MG CAP PO (21:12)
[2017-08-08] MEDS: INSULIN GLARGINE [LANtus] 3 ML PEN SC (21:17)
[2017-08-09] MEDS: ACCU-CHEK XX (02:00)
[2017-08-09] MEDS: LEVALBUTEROL (NEB) 0.63 MG/3 ML AMP HHN ×3 (02:52→14:09)
[2017-08-09 06:51] LABS: ADD MAN DIFF? NO
[2017-08-09 06:57] LABS: WHITE BLOOD COUNT 8.4 10^3/ul (4.8-10.8)
[2017-08-09 06:57] LABS: BASOPHILS % 0.4 % (0.0-2.0); EOSINOPHILS # 0.1 10^3/ul (0.0-0.5); EOSINOPHILS % 1.2 % (0.0-7.0); HEMATOCRIT 35.7 % (42.0-52.0); HEMOGLOBIN 11.5 g/dl (14.0-18.0); LYMPHOCYTES # 1.2 10^3/ul (0.8-2.9); LYMPHOCYTES % 14.4 % (15.0-51.0); MEAN CORPUSCULAR HEMOGLOBIN 29.3 pg (29.0-33.0); MEAN CORPUSCULAR HGB CONC 32.2 g/dl (32.0-37.0); MEAN CORPUSCULAR VOLUME 90.8 fl (82.0-101.0); MEAN PLATELET VOLUME 9.6 fl (7.4-10.4); MONOCYTE # 1.1 10^3/ul (0.3-0.9); MONOCYTES % 12.8 % (0.0-11.0); NEUTROPHILS % 70.6 % (39.0-77.0); PLATELET COUNT 296 10^3/UL (140-415); RED BLOOD COUNT 3.93 10^6/ul (4.70-6.10); RED CELL DISTRIBUTION WIDTH 13.7 % (11.5-14.5)
[2017-08-09 07:38] LABS: PHOSPHORUS 4.8 mg/dl (2.5-4.9)
[2017-08-09 07:38] LABS: MAGNESIUM 2.1 mg/dl (1.7-2.5)
[2017-08-09 07:40] LABS: ANION GAP 13 (8-16); BLOOD UREA NITROGEN 33 mg/dl (7-20); CALCIUM 8.9 mg/dl (8.4-10.2); CARBON DIOXIDE 31 mmol/L (21-31); CHLORIDE 98 mmol/L (97-110); CREATININE 1.02 mg/dl (0.61-1.24); GLUCOSE 93 mg/dl (70-220); POTASSIUM 4.9 mmol/L (3.5-5.1); SODIUM 137 mmol/L (135-144)
[2017-08-09] MEDS: INSULIN ASPART [NOVOLOG] 3 ML PEN SC ×7 (07:51→21:00)
[2017-08-09] MEDS: ENOXAPARIN 40 MG/0.4 ML SYG SC (08:37)
[2017-08-09] MEDS: FUROSEMIDE 40 MG TAB PO (08:40)
[2017-08-09] MEDS: DOCUSATE SODIUM 100 MG CAP PO ×2 (08:40→21:26)
[2017-08-09] MEDS: POLYETHYLENE GLYCOL 17 GM PACKET PO ×2 (08:41→21:27)
[2017-08-09] MEDS: CHOLECALCIFEROL 1,000 UNIT TAB PO (08:41)
[2017-08-09] MEDS: METOPROLOL 25 MG TAB PO ×2 (08:41→21:27)
[2017-08-09] MEDS: DIGOXIN 0.25 MG TAB PO (12:41)
[2017-08-09] MEDS: TAMSULOSIN (SR) 0.4 MG CAP PO (21:26)
[2017-08-09] MEDS: INSULIN GLARGINE [LANtus] 3 ML PEN SC (21:32)
[2017-08-10] MEDS: ACCU-CHEK XX (02:00)
[2017-08-10] MEDS: INSULIN ASPART [NOVOLOG] 3 ML PEN SC ×4 (07:55→12:10)
[2017-08-10] MEDS: CHOLECALCIFEROL 1,000 UNIT TAB PO (08:20)
[2017-08-10] MEDS: DOCUSATE SODIUM 100 MG CAP PO (08:21)
[2017-08-10] MEDS: POLYETHYLENE GLYCOL 17 GM PACKET PO (08:21)
[2017-08-10] MEDS: METOPROLOL 25 MG TAB PO (08:21)
[2017-08-10] MEDS: FUROSEMIDE 40 MG TAB PO (08:21)
[2017-08-10] MEDS: ENOXAPARIN 40 MG/0.4 ML SYG SC (08:34)
[2017-08-10] MEDS: LACTULOSE 30ML CUP PO (10:42)
[2017-08-10] MEDS: DIGOXIN 0.25 MG TAB PO (13:12)
== END 2017-08-10 14:14 | disposition home or self-care (01) | DRG 189 ==
LOC: E/R 11:53 → TEL 15:37
PROC: 0W993ZX Drainage of Right Pleural Cavity, Percutaneous Approach, Diagnostic (ICD-10-PCS; principal; 2017-07-29)
PROC: 0BBF3ZX Excision of Right Lower Lung Lobe, Percutaneous Approach, Diagnostic (ICD-10-PCS; 2017-08-03)
PROC: CW1N1ZZ Planar Nuclear Medicine Imaging of Whole Body using Technetium 99m (Tc-99m) (ICD-10-PCS; 2017-08-09)
DX: J96.01 Acute respiratory failure with hypoxia (principal); J90 Pleural effusion, not elsewhere classified; I48.91 Unspecified atrial fibrillation; I27.20 Pulmonary hypertension, unspecified; C34.91 Malignant neoplasm of unspecified part of right bronchus or lung; J43.9 Emphysema, unspecified; N40.0 Benign prostatic hyperplasia without lower urinary tract symptoms; E11.9 Type 2 diabetes mellitus without complications; I10 Essential (primary) hypertension; Z87.891 Personal history of nicotine dependence; R59.1 Generalized enlarged lymph nodes; R19.00 Intra-abdominal and pelvic swelling, mass and lump, unspecified site; R63.4 Abnormal weight loss; Z68.26 Body mass index [BMI] 26.0-26.9, adult; R97.20 Elevated prostate specific antigen [PSA]
CPT/HCPCS: 32555; 36415; 36600; 71045; 71275; 74176; 77012; 78306; 80048; 80053; 80061; 81001; 82306; 82378; 82550; 82553; 82652; 82803; 82945; 82962; 83036; 83605; 83615; 83735; 83880; 84100; 84153; 84154; 84157; 84436; 84439; 84443; 84479; 84484; 85025; 85610; 85730; 87040; 87070; 87075; 87086; 87102; 87116; 88104; 88305; 88307; 88312; 88313; 89051; 93005; 93306; 93970; 94640; 94664; 96374; 96375; 99285-25; A9503